=== PATIENT | male | born 1995 | race Caucasian/White ===

== ENCOUNTER 2016-05-26 12:56 | Day surgery (SDC) | payer OTHER ==
[2016-05-27] MEDS ORDERED: LORTAB 5-325 M1 EAC1 PO (11:25)
[2016-05-27] MEDS ORDERED: ISOPTO TEARS15 M1 EACH EYE (11:26)
[2016-05-27] MEDS ORDERED: BACITRACIN28.4 G2 TP (11:26)
[2016-08-07] MEDS ORDERED: NO HOME MEDICATION (08:19)
== END 2016-05-27 12:40 ==
LOC: SRG 12:56
PROC: 0JB10ZZ Excision of Face Subcutaneous Tissue and Fascia, Open Approach (ICD-10-PCS; principal; 2016-05-27)
PROC: 0HRDXK3 Replacement of Right Lower Arm Skin with Nonautologous Tissue Substitute, Full Thickness, External Approach (ICD-10-PCS; 2016-05-27)
PROC: 0HR1XK3 Replacement of Face Skin with Nonautologous Tissue Substitute, Full Thickness, External Approach (ICD-10-PCS; 2016-05-27)
DX: T20.00XA Burn of unspecified degree of head, face, and neck, unspecified site, initial encounter (principal); T22.00XA Burn of unspecified degree of shoulder and upper limb, except wrist and hand, unspecified site, initial encounter; T31.0 Burns involving less than 10% of body surface; Z98.890 Other specified postprocedural states; X08.8XXA Exposure to other specified smoke, fire and flames, initial encounter
CPT/HCPCS: C5271; C5272; C5275; J2250; J3010; Q4136